=== PATIENT | female | born 1930 | race Caucasian/White ===

== ENCOUNTER 2017-01-03 22:15 | Emergency (ER) | payer OTHER, MEDICAID ==
[~2017-01-03] VITALS: Ht 170.2 cm; Wt 59.0 kg
--- NOTE | 2017-01-03 22:15 | NUR ---
Shama maldonado in [facility] - 01/04/17 at [email or web address] Lyles at bedside.
[2017-01-03 22:17] VITALS: BP_SYST 105
--- NOTE | 2017-01-03 22:17 | NUR ---
Patient to ER bed 7 to gown for evaluation. Side rails up. Report given to Annabel ERWIN.
--- NOTE | 2017-01-03 22:18 | NUR ---
Patient is brought in by ambulance from [facility]. Patient states she was sitting on a chair a slipped off it. Hitting the back of her head and coccyx. Patient denies any pain at this time. Denies any loss of consiousness, N/V shortness of breath. Patient is in stable condition. No other complaints/injuries per patient or as noted. Daughter and Grandson are at bedside.
--- NOTE | 2017-01-03 22:20 | NUR ---
Dr. Lyles at bedside.
[2017-01-03] MEDS ORDERED: MINERAL OIL 133 ML ENEMA RC ONE (23:30)
[2017-01-03] MEDS ORDERED: BISACODYL 5 MG TABLET.DR (DULCOLAX) PO ONE (23:30)
[2017-01-04 01:02] VITALS: BP_SYST 105
--- NOTE | 2017-01-04 01:02 | NUR ---
Patient given written and verbal discharge instructions and verbalizes understanding. ER MD discussed with patient the results and treatment provided. Patient in stable condition. ID arm band removed. Rx of Dulcolax given. Patient educated on pain management and to follow up with PMD in 2 days. Pain Scale 0/10 Opportunity for questions provided and answered.
== END 2017-01-04 01:02 | disposition home or self-care (01) ==
LOC: SED 22:15
DX: M54.2 Cervicalgia (principal); M53.3 Sacrococcygeal disorders, not elsewhere classified; G20 Parkinson's disease; Z85.01 Personal history of malignant neoplasm of esophagus; W07.XXXA Fall from chair, initial encounter; Y93.89 Activity, other specified; Y92.89 Other specified places as the place of occurrence of the external cause; Y99.8 Other external cause status
CPT/HCPCS: 70450-TC; 72125-TC; 72170-TC; 99284